=== PATIENT | female | born 1995 | race Caucasian/White ===

== ENCOUNTER → 2020-01-16 | Outpatient (CLI) | payer OTHER ==
--- NOTE | 2020-01-16 15:10 | Diagnostic Imaging Report ---
PROCEDURE: US Non-ob pelvis comp/trans. TECHNIQUE: Multiple Real-time grayscale images were obtained of the pelvis in various projections endovaginally. Transabdominal imaging was also performed. INDICATION: Oligomenorrhea. FINDINGS: The uterus is anteverted measuring 6.1 x 3.2 x 3.8 cm. The endometrium is 7 mm in thickness. No uterine mass is detected. The right ovary measures 3.3 x 2.0 x 1.8 cm and the left ovary measures 3.4 x 1.8 x 2.1 cm. There is blood flow to both ovaries. No adnexal mass or free fluid is seen. There is a 4 mm cervical nabothian cyst. IMPRESSION: Unremarkable pelvic ultrasound. Dictated by: Dictated on workstation # [id number]
== END ==
LOC: MERGE 13:54 → RAD 13:54
PROVIDERS: ATTEND Obstetrics & Gynecology
DX: N91.4 Secondary oligomenorrhea (principal)
CPT/HCPCS: 76830; 76856